=== PATIENT | female | born 1960 | race Caucasian/White ===

== ENCOUNTER → 2016-11-29 | Outpatient (CLI) | payer OTHER ==
--- NOTE | ~2016-11-29 | MR152 ---
[facility] A Service [facility] RADIOLOGY TEXT RESULTS PATIENT: CARLOS A JOHNSON LOCATION: [facility] : 62 UNIT #: [id number] AGE: [address]: Mukund Nayak MD SEX: F ORDER DR: [id number] [address] [address] [id number] O MR#: [id number] Acc #: [id number] NAME: CARLOS A JOHNSON : 1960 SEX: F STUDY DATE/TIME: 11/29/2016 17:08 UNIT: [facility] ROOM: STUDY DESCRIPTION: MR Pelvis Wo Contrast Attending Physician: Mukund Nayak M.D. Referring Physician: Mukund Nayak M.D. Ordering Physician: Mukund Nayak M.D. Primary Care Physician: Mukund Nayak M.D. [facility]ENTER REPORT This report is preliminary unless electronic signature is present. EXAM MRI of the pelvis without contrast, 11/29/2016. HISTORY 55-year-old female with bilateral hip pain for 1-2 months. Chronic low back pain for 20 years. COMPARISON Pelvis, 11/15/2016. TECHNIQUE Routine unenhanced multiplanar, multisequence high-field MR imaging of the pelvis and both hips was performed. FINDINGS No evidence of acute fracture or dislocation. No evidence of avascular necrosis in either hip. No subchondral marrow edema in either hip to suggest significant articular cartilage loss. No evidence of an acetabular labral tear. No hip effusions. Gluteal tendon insertions and common hamstring tendon origins are within normal limits bilaterally. No significant bursal inflammation. Bony pelvis, sacrum, and SI joints are intact. Pelvic musculature is within normal limits. Visualized visceral pelvis is unremarkable. IMPRESSION 1. Unremarkable MRI of the pelvis and bilateral hips. No evidence of acute fracture, avascular necrosis, or significant arthrosis in either hip. 2. Gluteal tendon insertions and common hamstring tendon origins are of normal limits. No significant bursal inflammation. [facility] A [facility] RADIOLOGY TEXT RESULTS PATIENT: CARLOS A JOHNSON LOCATION: [facility] : 62 UNIT #: [id number] AGE: [address]: Mukund Nayak MD SEX: F ORDER DR: Dictated by... Toan Fermin M.D. THIS IS AN ELECTRONICALLY VERIFIED REPORT Toan Fermin M.D. at 12/01/2016 1:51 PM SANTOS/butch TD: 11/30/2016 18:28 JOB #: [id number] MRI CENTER REPORT Page 1 of 1
--- NOTE | ~2016-11-29 | MR113 ---
[facility] A Service of [facility] & [facility] RADIOLOGY TEXT RESULTS PATIENT: CARLOS A JOHNSON LOCATION: [facility] : 62 UNIT #: [id number] AGE: [address]: Mukund Nayak MD SEX: F ORDER DR: [id number] [address] [address] [id number] O MR#: [id number] Acc #: [id number] NAME: CARLOS A JOHNSON : 1960 SEX: F STUDY DATE/TIME: 11/29/2016 16:41 UNIT: [facility] ROOM: STUDY DESCRIPTION: MR Lumbar Wo Contrast Attending Physician: Mukund Nayak M.D. Referring Physician: Mukund Nayak M.D. Ordering Physician: Mukund Nayak M.D. Primary Care Physician: Mukund Nayak M.D. MRI CENTER REPORT This report is preliminary unless electronic signature is present. EXAM MRI of the lumbar spine without contrast HISTORY No known injury. No surgery. 55-year-old female complains of chronic low back pain for greater than 20 years. Pain is in the oqjte-cogtypv-hoah-left hip for 1-2 months. No cancer history. COMMENT MRI of the lumbar spine performed without contrast using routine 1.5T imaging technique. Sagittal alignment is normal. Bone marrow signal intensity is normal. The conus medullaris terminates at L2 and is normal. The intervertebral discs are well hydrated. At L1-2, there is no significant abnormality. At L2-3, there is mild bilateral facet hypertrophy but there is no canal or foraminal impingement. At L3-4, there is dnfy-ks-aeauknhu right and moderate left-sided facet degenerative change. There is a minor concentric disc bulge. There is no canal stenosis. There is minor inferior foraminal narrowing bilaterally. At L4-5, there is severe facet degenerative change bilaterally, right greater than left. There is a mild broad-based posterior disc bulge. There is mild effacement of the thecal sac and very mild canal stenosis. There is impingement upon nvwg-faavako-vckh-right lateral recess. Foraminal narrowing is not significant. At L5-S1, facet degenerative change is cefbicas-qj-szvyri on the left. There is no canal or foraminal impingement. [facility] A Service of [facility] RADIOLOGY TEXT RESULTS PATIENT: CARLOS A JOHNSON LOCATION: [facility] : 62 UNIT #: [id number] AGE: [address]: Mukund Nayak MD SEX: F ORDER DR: IMPRESSION 1. There is multiple-level lumbar degenerative change with details provided above. Very mild canal stenosis at the L4-5 level with mass effect on left greater than right lateral recess. Facet degenerative changes also most prominent at the 4-5 level but please refer to the comment section and correlate with the symptoms. Dictated by... Yolie Cantu M.D. THIS IS AN ELECTRONICALLY VERIFIED REPORT Yolie Cantu M.D. at 11/30/2016 5:20 PM SAC/psc TD: 11/30/2016 13:11 JOB #: [id number] MRI CENTER REPORT Page 1 of 1
== END | disposition home or self-care (01) ==
LOC: SMRI 15:36
DX: M54.5 Low back pain (principal); R10.2 Pelvic and perineal pain; M47.896 Other spondylosis, lumbar region; M48.06 Spinal stenosis, lumbar region; M47.897 Other spondylosis, lumbosacral region
CPT/HCPCS: 72148; 72195